=== PATIENT | female | born 1965 | race Caucasian/White ===

== ENCOUNTER 2020-06-30 12:38 | Emergency (ER) | payer MEDICAID, OTHER ==
[~2020-06-30] VITALS: Ht 162.6 cm; Wt 68.0 kg
[2020-06-30] MEDS ORDERED: IBUPROFEN 600MG TABLET PO ONE (13:30)
[2020-06-30 14:00] VITALS: BP 125/85
[2020-06-30] MEDS ORDERED: IBUP-2029 MT (15:23)
== END 2020-06-30 15:51 | disposition home or self-care (01) ==
LOC: ER 13:23
DX: M54.5 Low back pain (principal); V43.52XA Car driver injured in collision with other type car in traffic accident, initial encounter; Y93.89 Activity, other specified; Y92.414 Local residential or business street as the place of occurrence of the external cause; R03.0 Elevated blood-pressure reading, without diagnosis of hypertension
CPT/HCPCS: 72100; 99283